=== PATIENT | female | born 1990 | race African-American/Black ===

== ENCOUNTER 2019-01-27 03:57 | Emergency (ER) | payer OTHER ==
[~2019-01-27] VITALS: Ht 172.7 cm; Wt 81.0 kg
[2019-01-27] MEDS ORDERED: IBUPROFEN 800MG TABLET PO ONE (08:00)
[2019-01-27] MEDS ORDERED: HYDROCODONE/ACETAMINOPHEN 5/325MG TABLET PO ONE (08:15)
[2019-01-27 09:40] VITALS: BP 127/62
== END 2019-01-27 09:40 | disposition home or self-care (01) ==
LOC: ER 03:57
DX: S80.01XA Contusion of right knee, initial encounter (principal); S00.83XA Contusion of other part of head, initial encounter; V49.49XA Driver injured in collision with other motor vehicles in traffic accident, initial encounter; Y93.89 Activity, other specified; Y92.410 Unspecified street and highway as the place of occurrence of the external cause
CPT/HCPCS: 73562; 99283